=== PATIENT | female | born 2000 | race Caucasian/White ===

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

== ENCOUNTER → 2021-01-29 16:16 | Outpatient (CLI) | payer BC, SELFPAY ==
[2021-01-29 17:21] LABS: Add Manual Diff / Slide Review NO; Basophils Absolute Auto 100 /uL (0-100); Basophils Percent Auto 0.4 % (0-2); Eosinophils Absolute Auto 100 /uL (0-450); Eosinophils Percent Auto 0.7 % (2-4); Hematocrit 38.9 % (36-46); Lymphocytes Absolute Auto 3200 /uL (1100-4500); Lymphocytes Percent Auto 26.5 % (25-40); Mean Corpuscular HGB Conc 33.4 % (30-36); Mean Corpuscular Hemoglobin 28.3 PG (26-34); Mean Corpuscular Volume 84.5 fL (80-100); Monocytes Absolute Auto 700 /uL (0-900); Neutrophils Absolute Auto 8000 /uL (1500-7000); Neutrophils Percent Auto 66.4 % (50-75); Platelet Count 315 X10^3/uL (150-400); Red Cell Distribution Width 13.4 % (11.6-14.8)
[2021-01-29 17:25] LABS: Hemoglobin A1C% w Est Avg Glu 5.2 % (4.0-6.0)
[2021-01-29 17:32] LABS: Alanine Aminotransferase 22 IU/L (<35); Albumin 4.5 g/dL (3.5-5.0); Albumin Globulin Ratio 1.4 (1.0-2.8); Alkaline Phosphatase 76 U/L (38-126); Aspartate Aminotransferase 23 IU/L (14-36); Bilirubin Total 0.6 mg/dL (0.2-1.3); Blood Urea Nitrogen 9 mg/dL (7-17); C-Reactive Protein Quant 0.6 mg/dL (<1.0); Calcium 9.5 mg/dL (8.4-10.2); Carbon Dioxide 25 mmol/L (22-32); Chloride 102 mmol/L (98-107); Cholesterol 186 mg/dL (140-199); Estimated Glomerular Filt Rate > 60.0 mL/min (>60); Globulin 3.3 g/dL (1.7-4.1); Glucose 90 mg/dL (70-100); HDL Cholesterol 40 mg/dL (40-60); HEMOLYSIS < 15 (0-50); LDL Cholesterol Calculated 112 mg/dL (<100); Potassium 3.9 mmol/L (3.4-5.1); Sodium 138 mmol/L (137-145); Total Protein 7.8 g/dL (6.3-8.2); Triglycerides 169 mg/dL (35-150)
[2021-01-29 18:04] LABS: Ferritin 19 ng/mL (6-137)
[2021-01-29 18:17] LABS: Total Iron Binding Capacity 431 ug/dL (265-497)
[2021-01-29 18:18] LABS: Vitamin B12 433 pg/mL (239-931)
[2021-01-29 18:22] LABS: Free T4, Direct Thyroxine 0.99 ng/dL (0.78-2.19); T4 Total Thyroxine 8.97 ug/dL (5.5-11.0); Triiodothryronine T3 Uptake 33.5 % (23.5-40.5)
[2021-01-29 18:36] LABS: Thyroid Stimulating Hormone 1.25 uIU/mL (0.47-4.68)
[2021-01-29 18:37] LABS: Vitamin D 25 Hydroxy (D3) 25.3 ng/mL (30.0-100.0)
[2021-01-29 18:54] LABS: Erythrocyte Sedimentation Rate 14 MM/HR (0-20)
[2021-01-30 09:49] LABS: Insulin Level Total 31.5 uIU/mL (2.6-24.9); Thyroid Peroxidase Antibodies <9 IU/mL (0-26); Triiodothyronine T3 Total 113 ng/dL (71-180)
[2021-01-31 19:40] LABS: ANA Screen, IFA Negative (.)
[2021-02-01 10:08] LABS: Triiodothyronine T3 Reverse 22.9 ng/dL (9.2-24.1)
== END ==
PROVIDERS: PCP Naturopath; Referring Provider Chiropractor; Visit Provider Chiropractor
DX: R53.83 Other fatigue (principal); R73.09 Other abnormal glucose; E55.9 Vitamin D deficiency, unspecified
CPT/HCPCS: 36415; 80053; 80061; 82306; 82607; 82728; 83036; 83525; 83550; 84436; 84439; 84443; 84479; 84480; 84482; 85025; 85651; 86038; 86140; 86376; 86900; 86901

== ENCOUNTER → 2022-03-12 09:21 | Outpatient (CLI) | payer BC, SELFPAY ==
[2022-03-12 11:00] LABS: Add Manual Diff / Slide Review NO; Basophils Absolute Auto 0 /uL (0-100); Basophils Percent Auto 0.3 % (0-2); Eosinophils Absolute Auto 100 /uL (0-450); Eosinophils Percent Auto 1.6 % (2-4); Hematocrit 41.7 % (36-46); Lymphocytes Absolute Auto 2900 /uL (1100-4500); Lymphocytes Percent Auto 34.6 % (25-40); Mean Corpuscular HGB Conc 33.6 % (30-36); Mean Corpuscular Hemoglobin 28.9 PG (26-34); Mean Corpuscular Volume 86.2 fL (80-100); Monocytes Absolute Auto 500 /uL (0-900); Monocytes Percent Auto 5.9 % (3-14); Neutrophils Absolute Auto 4900 /uL (1500-7000); Neutrophils Percent Auto 57.6 % (50-75); Platelet Count 305 X10^3/uL (150-400); Red Blood Cell Count 4.84 X10^6/uL (4.0-5.2); Red Cell Distribution Width 12.6 % (11.6-14.8); White Blood Cell Count 8.5 X10^3/uL (4.5-11.0)
[2022-03-12 11:18] LABS: Iron 106 ug/dL (37-170)
[2022-03-12 11:19] LABS: Erythrocyte Sedimentation Rate 5 MM/HR (0-20)
[2022-03-12 11:24] LABS: Hemoglobin A1C% w Est Avg Glu 5.1 % (4.0-6.0)
[2022-03-12 11:29] LABS: Alanine Aminotransferase 25 IU/L (<35); Albumin 4.6 g/dL (3.5-5.0); Albumin Globulin Ratio 1.6 (1.0-2.8); Alkaline Phosphatase 85 U/L (38-126); Aspartate Aminotransferase 21 IU/L (14-36); BUN Creatinine Ratio 18.9 (6-22); Bilirubin Total 0.6 mg/dL (0.2-1.3); Blood Urea Nitrogen 14 mg/dL (7-17); C-Reactive Protein Quant 1.2 mg/dL (<1.0); Calcium 9.5 mg/dL (8.4-10.2); Carbon Dioxide 26 mmol/L (22-32); Chloride 101 mmol/L (98-107); Cholesterol 192 mg/dL (140-199); Creatine Kinase 39 U/L (30-135); Estimated Glomerular Filt Rate > 60 mL/min (>60); Globulin 2.8 g/dL (1.7-4.1); Glucose 94 mg/dL (70-100); HDL Cholesterol 41 mg/dL (40-60); HEMOLYSIS < 15 (0-50); LDL Cholesterol Calculated 110 mg/dL (<100); Magnesium 2.1 mg/dL (1.6-2.3); Potassium 4.2 mmol/L (3.4-5.1); Sodium 136 mmol/L (137-145); Total Protein 7.4 g/dL (6.3-8.2); Triglycerides 204 mg/dL (35-150); Uric Acid 5.4 mg/dL (2.5-6.2)
[2022-03-12 11:30] LABS: Percent Iron Saturation 24 % (15-50); Total Iron Binding Capacity 436 ug/dL (265-497)
[2022-03-12 11:38] LABS: Free T3, Triiodothyronine Free 3.57 pg/mL (2.77-5.27); Free T4, Direct Thyroxine 1.15 ng/dL (0.78-2.19); T4 Total Thyroxine 8.79 ug/dL (5.5-11.0); T7 (Free Thyroxine Index) 3.08 (1.65-3.89)
[2022-03-12 12:08] LABS: Ferritin 23 ng/mL (6-137)
[2022-03-12 12:22] LABS: Vitamin B12 517 pg/mL (239-931)
[2022-03-13 05:20] LABS: Triiodothyronine T3 Total 113 ng/dL (71-180)
[2022-03-13 07:39] LABS: Insulin Level Total 32.9 uIU/mL (2.6-24.9)
[2022-03-14 15:07] LABS: ANA Screen, IFA Negative (.)
[2022-03-14 19:22] LABS: Anti Thyroglobulin Antibody <1.0 IU/mL (0.0-0.9); Thyroid Peroxidase Antibodies <8 IU/mL (0-34)
[2022-03-18 20:40] LABS: Triiodothyronine T3 Reverse 16.6 ng/dL (9.2-24.1)
[2022-03-27 17:06] LABS: Vitamin D 25 Hydroxy (D3) 45.2 ng/mL (30.0-100.0)
== END ==
PROVIDERS: PCP Naturopath; Referring Provider Chiropractor; Visit Provider Chiropractor
DX: R53.83 Other fatigue (principal); R73.09 Other abnormal glucose; E55.9 Vitamin D deficiency, unspecified
CPT/HCPCS: 36415; 80053; 80061; 82306; 82550; 82607; 82728; 83036; 83525; 83540; 83550; 83735; 84436; 84439; 84443; 84479; 84480; 84481; 84482; 84550; 85025; 85651; 86038; 86140; 86376; 86800

== ENCOUNTER → 2023-07-21 09:30 | Outpatient (CLI) | payer OTHER, SELFPAY ==
--- NOTE | 2023-07-21 | DI.US.S_ITS ---
PROCEDURE: US THYROID INDICATIONS: ABNORMAL LAB VALUES TECHNIQUE: Real-time scanning was performed of the thyroid gland, with image documentation. COMPARISON: None. FINDINGS: Right: Thyroid lobe measures 4.4 x 1.3 x 1.9 cm, and is homogeneous in echotexture. Left: Thyroid lobe measures 4.5 x 1.0 x 1.3 cm, and is homogenous in echotexture. Isthmus: 2 mm thick. IMPRESSION: No thyroid nodules. Normal appearance of the thyroid. Dictated by: Gamaliel Corbett M.D. on 07/21/2023 at 10:44 Approved by: Gamaliel Corbett M.D. on 07/21/2023 at 10:45
== END ==
PROVIDERS: PCP Naturopath; Referring Provider Emergency Medicine; Visit Provider Emergency Medicine
DX: R53.83 Other fatigue (principal); R79.9 Abnormal finding of blood chemistry, unspecified
CPT/HCPCS: 76536

== ENCOUNTER → 2024-05-27 12:31 | Outpatient (CLI) | payer OTHER, SELFPAY ==
[2024-05-27 14:34] LABS: Add Manual Diff / Slide Review NO; Basophils Absolute Auto 0 /uL (0-100); Basophils Percent Auto 0.3 % (0-2); Eosinophils Absolute Auto 100 /uL (0-450); Eosinophils Percent Auto 0.8 % (2-4); Hematocrit 42.5 % (36-46); Hemoglobin 14.5 g/dL (12.0-16.0); Lymphocytes Absolute Auto 2700 /uL (1100-4500); Lymphocytes Percent Auto 24.1 % (25-40); Mean Corpuscular Hemoglobin 29.4 PG (26-34); Mean Corpuscular Volume 86.5 fL (80-100); Monocytes Absolute Auto 800 /uL (0-900); Monocytes Percent Auto 6.8 % (3-14); Neutrophils Absolute Auto 7600 /uL (1500-7000); Platelet Count 309 X10^3/uL (150-400); Red Blood Cell Count 4.92 X10^6/uL (4.0-5.2); Red Cell Distribution Width 12.7 % (11.6-14.8); White Blood Cell Count 11.2 X10^3/uL (4.5-11.0)
[2024-05-27 15:26] LABS: Alanine Aminotransferase 22 IU/L (<35); Albumin 4.8 g/dL (3.5-5.0); Albumin Globulin Ratio 1.4 (1.0-2.8); Alkaline Phosphatase 107 U/L (38-126); Aspartate Aminotransferase 22 IU/L (14-36); BUN Creatinine Ratio 30.5 (6-22); Bilirubin Total 0.4 mg/dL (0.2-1.3); Blood Urea Nitrogen 18 mg/dL (7-17); Calcium 10.5 mg/dL (8.4-10.2); Carbon Dioxide 21 mmol/L (22-32); Chloride 102 mmol/L (98-107); Estimated Glomerular Filt Rate > 60 mL/min (>60); Globulin 3.4 g/dL (1.7-4.1); Glucose 90 mg/dL (70-100); HEMOLYSIS < 15 (0-50); Potassium 4.3 mmol/L (3.4-5.1); Sodium 136 mmol/L (137-145); Total Protein 8.2 g/dL (6.3-8.2)
[2024-05-27 15:37] LABS: Thyroid Stimulating Hormone 0.918 uIU/mL (0.47-4.68)
[2024-05-27 15:42] LABS: Free T3, Triiodothyronine Free 4.69 pg/mL (2.77-5.27)
[2024-05-29 07:07] LABS: Thyroid Peroxidase Antibodies 15 IU/mL (0-34); Triiodothyronine T3 Total 163 ng/dL (71-180)
== END ==
LOC: LAB 12:34
PROVIDERS: PCP Family Medicine; Referring Provider Internal Medicine Endocrinology, Diabetes & Metabolism; Visit Provider Internal Medicine Endocrinology, Diabetes & Metabolism
DX: Z13.1 Encounter for screening for diabetes mellitus (principal); E03.9 Hypothyroidism, unspecified; R79.89 Other specified abnormal findings of blood chemistry; E66.9 Obesity, unspecified
CPT/HCPCS: 80053; 83036; 84439; 84443; 84480; 84481; 85025; 86376; 86800

== ENCOUNTER → 2024-05-30 12:10 | Outpatient (CLI) | payer OTHER, SELFPAY | LOC: LAB 12:10 | PROVIDERS: PCP Family Medicine; Referring Provider Internal Medicine Endocrinology, Diabetes & Metabolism; Visit Provider Internal Medicine Endocrinology, Diabetes & Metabolism | DX: R79.89 Other specified abnormal findings of blood chemistry (principal) | CPT/HCPCS: 82530 ==

== ENCOUNTER → 2024-08-17 06:43 | Outpatient (CLI) | payer OTHER, SELFPAY | PROVIDERS: PCP Family Medicine; Referring Provider Internal Medicine Endocrinology, Diabetes & Metabolism; Visit Provider Internal Medicine Endocrinology, Diabetes & Metabolism | DX: R79.89 Other specified abnormal findings of blood chemistry (principal) | CPT/HCPCS: 36415 ==

== ENCOUNTER → 2024-10-21 11:59 | Outpatient (CLI) | payer OTHER, SELFPAY ==
[2024-10-21 13:52] LABS: Free T3, Triiodothyronine Free 3.72 pg/mL (2.77-5.27)
[2024-10-21 14:06] LABS: TSH w/ Reflex to FT4 2.51 uIU/mL (0.47-4.68)
[2024-10-22 07:08] LABS: Triiodothyronine T3 Total 111 ng/dL (71-180)
== END ==
PROVIDERS: PCP Family Medicine; Referring Provider Internal Medicine Endocrinology, Diabetes & Metabolism; Visit Provider Internal Medicine Endocrinology, Diabetes & Metabolism
DX: E03.9 Hypothyroidism, unspecified (principal)
CPT/HCPCS: 36415; 84443; 84480; 84481